=== PATIENT | female | born 1960 | race Caucasian/White ===

== ENCOUNTER → 2021-05-24 09:44 | Outpatient (BNVA) | payer OTHER, SELFPAY | PROVIDERS: PCP Physician Assistant Medical; Visit Provider Internal Medicine | DX: R76.8 Other specified abnormal immunological findings in serum (principal); M54.2 Cervicalgia; R53.83 Other fatigue; Z11.59 Encounter for screening for other viral diseases; M25.50 Pain in unspecified joint; R21 Rash and other nonspecific skin eruption; E06.3 Autoimmune thyroiditis; Z79.899 Other long term (current) drug therapy; Z87.891 Personal history of nicotine dependence | CPT/HCPCS: 36415; 80053; 81003; 82306; 82533; 82550; 82728; 83540; 83735; 85025; 86140; 86160; 86704; 86803; 87340; 99203; 99204 ==

== ENCOUNTER → 2021-07-20 09:24 | Outpatient (BNVA) | payer OTHER, SELFPAY | PROVIDERS: PCP Family Medicine; Visit Provider Physician Assistant | DX: M47.812 Spondylosis without myelopathy or radiculopathy, cervical region (principal) | CPT/HCPCS: 72050 ==

== ENCOUNTER → 2021-09-28 08:57 | Outpatient (BNVA) | payer OTHER, SELFPAY | PROVIDERS: PCP Family Medicine; Visit Provider Internal Medicine | DX: E06.3 Autoimmune thyroiditis (principal); M25.50 Pain in unspecified joint; R76.8 Other specified abnormal immunological findings in serum; Z79.899 Other long term (current) drug therapy | CPT/HCPCS: 80053; 85025; 85651; 86140 ==

== ENCOUNTER → 2021-10-14 11:18 | Outpatient (BNVA) | payer OTHER, SELFPAY | PROVIDERS: PCP Family Medicine; Visit Provider Nurse Practitioner Family | DX: E06.3 Autoimmune thyroiditis (principal); W57.XXXA Bitten or stung by nonvenomous insect and other nonvenomous arthropods, initial encounter; E07.9 Disorder of thyroid, unspecified | CPT/HCPCS: 84439; 84443; 84481; 86003; 86618; 86666; 86757 ==

== ENCOUNTER → 2022-01-03 08:55 | Outpatient (BNVA) | payer OTHER, SELFPAY | PROVIDERS: PCP Family Medicine; Visit Provider Internal Medicine | DX: R76.8 Other specified abnormal immunological findings in serum (principal); Z79.899 Other long term (current) drug therapy; E06.3 Autoimmune thyroiditis; E07.9 Disorder of thyroid, unspecified; R79.89 Other specified abnormal findings of blood chemistry; E03.8 Other specified hypothyroidism | CPT/HCPCS: 80053; 84439; 84443; 85025; 85651; 86140 ==

== ENCOUNTER → 2022-04-19 08:56 | Outpatient (BNVA) | payer OTHER, SELFPAY | PROVIDERS: PCP Family Medicine; Visit Provider Nurse Practitioner Family | DX: E03.8 Other specified hypothyroidism (principal); E06.3 Autoimmune thyroiditis; E16.0 Drug-induced hypoglycemia without coma | CPT/HCPCS: 80053; 84443 ==

== ENCOUNTER → 2022-10-12 11:35 | Outpatient (BNVA) | payer OTHER, SELFPAY | PROVIDERS: PCP Nurse Practitioner Family; Visit Provider Nurse Practitioner Family | DX: E07.9 Disorder of thyroid, unspecified (principal); E78.5 Hyperlipidemia, unspecified; R20.2 Paresthesia of skin; Z79.899 Other long term (current) drug therapy | CPT/HCPCS: 80053; 80061; 84443; 85025 ==

== ENCOUNTER → 2023-01-16 08:28 | Outpatient (BNVA) | payer OTHER, SELFPAY | PROVIDERS: PCP Nurse Practitioner Family; Visit Provider Nurse Practitioner Family | DX: E07.9 Disorder of thyroid, unspecified (principal); I10 Essential (primary) hypertension; E78.5 Hyperlipidemia, unspecified; M25.50 Pain in unspecified joint; E03.8 Other specified hypothyroidism; E06.3 Autoimmune thyroiditis | CPT/HCPCS: 80053; 80061; 82306; 84443 ==

== ENCOUNTER → 2023-03-06 09:44 | Outpatient (BNVA) | payer MEDICARE, OTHER, SELFPAY | PROVIDERS: PCP Nurse Practitioner Family; Visit Provider Nurse Practitioner Family | DX: E03.8 Other specified hypothyroidism (principal); E06.3 Autoimmune thyroiditis; E78.5 Hyperlipidemia, unspecified | CPT/HCPCS: 80053; 80061; 84443 ==

== ENCOUNTER → 2023-05-15 10:31 | Outpatient (BNVA) | payer MEDICARE, OTHER, SELFPAY | PROVIDERS: PCP Nurse Practitioner Family; Visit Provider Nurse Practitioner Family | DX: I10 Essential (primary) hypertension (principal); Z23 Encounter for immunization; R79.89 Other specified abnormal findings of blood chemistry; E07.9 Disorder of thyroid, unspecified | CPT/HCPCS: 80053; 84443 ==

== ENCOUNTER → 2023-07-12 09:06 | Outpatient (BNVA) | payer MEDICARE, OTHER, SELFPAY | PROVIDERS: PCP Nurse Practitioner Family; Visit Provider Nurse Practitioner Family | DX: E07.9 Disorder of thyroid, unspecified (principal); R20.2 Paresthesia of skin | CPT/HCPCS: 84443 ==

== ENCOUNTER → 2023-09-07 09:24 | Outpatient (BNVA) | payer MEDICARE, OTHER, SELFPAY | PROVIDERS: PCP Nurse Practitioner Family; Visit Provider Nurse Practitioner Family | DX: I10 Essential (primary) hypertension (principal); E07.9 Disorder of thyroid, unspecified; E06.3 Autoimmune thyroiditis; E78.2 Mixed hyperlipidemia | CPT/HCPCS: 80053; 80061; 84439; 84443; 84481 ==

== ENCOUNTER → 2024-07-18 10:13 | Outpatient (BNVA) | payer MEDICARE, OTHER, SELFPAY | PROVIDERS: PCP Nurse Practitioner Family; Visit Provider Nurse Practitioner Family | DX: I10 Essential (primary) hypertension (principal); R53.83 Other fatigue; E07.9 Disorder of thyroid, unspecified; R53.82 Chronic fatigue, unspecified | CPT/HCPCS: 80053; 84436; 84443; 85025 ==

== ENCOUNTER → 2024-09-12 09:32 | Outpatient (BNVA) | payer MEDICARE, OTHER, SELFPAY | PROVIDERS: PCP Nurse Practitioner Family; Visit Provider Nurse Practitioner Family | DX: I10 Essential (primary) hypertension (principal); E07.9 Disorder of thyroid, unspecified | CPT/HCPCS: 80053; 80061; 84443 ==

== ENCOUNTER → 2024-11-26 11:21 | Outpatient (BNVA) | payer MEDICARE, OTHER, SELFPAY | PROVIDERS: PCP Nurse Practitioner Family; Visit Provider Nurse Practitioner Family | DX: E03.8 Other specified hypothyroidism (principal); E06.3 Autoimmune thyroiditis | CPT/HCPCS: 84443 ==

== ENCOUNTER → 2025-02-18 14:18 | Outpatient (BNVA) | payer MEDICARE, OTHER, SELFPAY | PROVIDERS: PCP Nurse Practitioner Family; Visit Provider Nurse Practitioner Family | DX: I10 Essential (primary) hypertension (principal) | CPT/HCPCS: 80053; 80061; 84443 ==

== ENCOUNTER → 2025-04-24 09:15 | Outpatient (BNVA) | payer MEDICARE, OTHER, SELFPAY | PROVIDERS: PCP Nurse Practitioner Family; Visit Provider Nurse Practitioner Family | DX: E03.8 Other specified hypothyroidism (principal); E07.9 Disorder of thyroid, unspecified | CPT/HCPCS: 80053; 80061 ==